=== PATIENT | female | born 1970 | race Caucasian/White ===

== ENCOUNTER 2017-05-07 08:52 | Emergency (ER) | payer OTHER ==
[~2017-05-07 08:52] MED LIST: METAMUCIL425 GM PO; MULT1CAP15 PO; OMEG300C PO
--- NOTE | 2017-05-07 09:34 | PHYS DOC ---
Adult General [facility] HPI Patient is a 47-year-old female with no significant past medical history other than episode of shingles previously presents with complaints of bilateral rib cage pain and left-sided numbness that has been going on for a week. Patient has been ambulatory. Patient doesn't describe any rashes or skin lesions. Patient did have recent long travel. Patient denies any fevers, vomiting, diarrhea or sick contacts. Patient is not a smoker or on control pills. Patient denies any unilateral leg swelling. Patient is not expressing shortness of breath. Review of Systems Review of Systems Constitutional: Denies fever or chills [] Eyes: Denies change in visual acuity, redness, or eye pain [] HENT: Denies nasal congestion or sore throat [] Respiratory: Denies cough or shortness of breath [] Cardiovascular: No additional information not addressed in HPI [] GI: Denies abdominal pain, nausea, vomiting, bloody stools or diarrhea [] : Denies dysuria or hematuria or vaginal discharge Musculoskeletal: Denies back pain or joint pain [] Integument: Denies rash or skin lesions [] Neurologic: Denies headache, focal weakness or sensory changes [] Allergies Allergies Allergies Coded Allergies Type Severity Reaction Last Updated Verified No Known Drug Allergies 07/27/14 No Physical Exam Physical Exam Constitutional: Well developed, well nourished, no acute distress, non-toxic appearance. [] HENT: Normocephalic, atraumatic, bilateral external ears normal, oropharynx moist, no oral exudates, nose normal. [] Eyes: PERRLA, EOMI, conjunctiva normal, no discharge. [] Neck: Normal range of motion, no tenderness, supple, no stridor. No JVD, no LAD Cardiovascular:Heart rate regular rhythm, no murmur, equal pulses, normal perfusion Lungs & Thorax: Bilateral breath sounds clear to auscultation, no tachypnea Abdomen: Bowel sounds normal, soft, no tenderness, no masses, no pulsatile masses. [] Skin: Warm, dry, no erythema, no rash. [] Back: No tenderness, no CVA tenderness. Normal alignment, no step-offs Extremities: No tenderness, no cyanosis, no clubbing, ROM intact, no edema. No signs of DVT Neurologic: Alert and oriented X 3, normal motor function,, no focal deficits noted. Patient ambulates with normal gait without assistance Psychologic: Affect normal, judgement normal, mood normal. [] EKG EKG [id number], SR, no stemi[] Radiology/Procedures Radiology/Procedures TECHNIQUE: PA and lateral chest radiographs FINDINGS: The cardiomediastinal silhouette is within normal limits. The lungs are clear. The costophrenic sulci are clear and well demarcated bilaterally. IMPRESSION: No radiographic evidence of an acute cardiopulmonary abnormality.[] Course & Med Decision Making Course & Med Decision Making Pertinent Labs and Imaging studies reviewed. (See chart for details) and they have been discussed with the patient At this time there is no clear evidence of thought the reason for the patient's symptoms. However I don't believe that the patient is in need for inpatient evaluation given the lack of significant findings on physical exam, the length of the time but she's been having her symptoms, normal vital signs. My suspicion for a significant infectious, vascular, neurovascular or other significant etiology at the time of this ED evaluation is very low. However, as I explained to the patient and the family this may be an early process and the value of recheck and reevaluation is of sharp importance. Both the patient and family agreed to follow up as directed, no reservations about being discharged home. [] Dragon Disclaimer Dragon Disclaimer This chart was dictated in whole or in part using Voice Recognition software in a busy, high-work load, and often noisy Emergency Department environment. It may contain unintended and wholly unrecognized errors or omissions. Departure Departure: Impression: Primary Impression: Chest wall pain Additional Impression: Paresthesia Disposition: 01 HOME, SELF-CARE Condition: STABLE Referrals: DAWNA ROOT (PCP) Please follow-up for recheck and reevaluation in 2 days Patient Instructions: Chest Wall Pain, Paresthesia Scripts Acetaminophen With Codeine (TYLENOL WITH CODEINE #3 TABLET) 1 Each Tablet 1 TAB PO Q6HRS, #10 TAB Prov: Ildefonso GUERRIER MD 05/07/17 Problem Qualifiers Ildefonso GUERRIER MD May 07, 2017 09:34
--- NOTE | 2017-05-07 09:49 | EKG ---
[address] [address] Test Date: 2017-05-07 Test Time: 09:40:22 Pat Name: NAYELY UNDERWOOD Department: Room: Gender: F Material Analyst: : 1970 Requested By: Iledfonso GUERRIER Order Number: [id number] Reading MD: Evertno Llamas Measurements Intervals [place] Rate: 79 P: 36 NE: 150 QRS: -51 QRSD: 86 T: 95 QT: 402 QTc: 462 Interpretive Statements SINUS RHYTHM NON-SPECIFIC ST/T CHANGES Electronically Signed On 05-08-2017 10:24:14 CDT by Everton Llamas
--- NOTE | 2017-05-07 09:52 | RAD ---
EXAM: CHEST 2 VIEWS History: History of chest pain COMPARISON: None available. TECHNIQUE: PA and lateral chest radiographs FINDINGS: The cardiomediastinal silhouette is within normal limits. The lungs are clear. The costophrenic sulci are clear and well demarcated bilaterally. IMPRESSION: No radiographic evidence of an acute cardiopulmonary abnormality.
[2017-05-07 10:31] LABS: BASO # 0.1 x10^3/uL (0.0-0.2); BASO % 1 % (0-3); EOS # 0.9 x10^3/uL (0.0-0.7); EOS % 10 % (0-3); HEMATOCRIT 44.8 % (36.0-47.0); HEMOGLOBIN 15.4 g/dL (12.0-15.5); LYMPH # 2.1 x10^3/uL (1.0-4.8); LYMPH % 23 % (24-48); MEAN CORPUSCULAR HEMOGLOBIN 29 pg (25-35); MEAN CORPUSCULAR HGB CONC 34 g/dL (31-37); MEAN CORPUSCULAR VOLUME 85 fL (79-100); MONO # 0.5 x10^3/uL (0.0-1.1); MONO % 5 % (0-9); NEUT # 5.5 x10^3uL (1.8-7.7); NEUT % 60 % (31-73); PLATELET COUNT 264 x10^3/uL (140-400); RED BLOOD COUNT 5.25 x10^6/uL (3.50-5.40); RED CELL DISTRIBUTION WIDTH 12.5 % (11.5-14.5); WHITE BLOOD COUNT 9.1 x10^3/uL (4.0-11.0)
[2017-05-07 10:32] LABS: CALCIUM 8.9 mg/dL (8.5-10.1); CREATININE 0.8 mg/dL (0.6-1.0); GFR 77.2; POTASSIUM 3.9 mmol/L (3.5-5.1)
[2017-05-07] MEDS ORDERED: KETOROLAC 30 MG/ML VIAL. IV ONE (11:15)
[2017-05-07] MEDS ORDERED: ACET-704 PO (11:36)
[2017-05-07 11:40] VITALS: BP 113/70
== END 2017-05-07 11:40 | disposition home or self-care (01) ==
LOC: ER 08:52
DX: R07.89 Other chest pain (principal); R20.2 Paresthesia of skin
CPT/HCPCS: 36415; 71020; 80048; 84484; 85025; 85379; 93005; 96374; 99285; J1885

== ENCOUNTER → 2017-05-09 | Outpatient (CLI) | payer OTHER ==
[2017-05-07 11:40] VITALS: BP 113/70
[~2017-05-09] MED LIST changes: +ACET-704 PO
--- NOTE | 2017-05-09 14:27 | RAD ---
Lumbar spine, 5 views, 05/09/2017: History: Left leg numbness and thoracic pain The lumbar vertebral heights are well-maintained. The intervertebral disc spaces are well preserved. There are only minimal scattered marginal spurs in the lumbar spine. There is also mild spurring in the lower thoracic spine. There is no evidence of spondylolysis. The paraspinous soft tissues are unremarkable. IMPRESSION: 1. Mild marginal spurring. 2. No acute lumbar spine abnormality is detected.
--- NOTE | 2017-05-09 14:29 | RAD ---
Thoracic spine, 3 views, 05/09/2017: History: Left leg numbness, thoracic pain The thoracic vertebral heights are well-maintained. There are mild scattered marginal spurs. There is a mild thoracic scoliosis. No fracture or destructive bony lesion is seen. The paraspinous soft tissues are unremarkable. IMPRESSION: 1. Mild thoracic scoliosis. 2. Mild marginal spurring. 3. No acute bony abnormality is detected.
== END | disposition home or self-care (01) ==
LOC: DXRADRC 12:53
PROVIDERS: ATTEND Physician Assistant Medical
DX: M53.84 Other specified dorsopathies, thoracic region (principal); M41.84 Other forms of scoliosis, thoracic region
CPT/HCPCS: 72072; 72110

== ENCOUNTER → 2017-05-18 | Outpatient (CLI) | payer OTHER ==
[2017-05-07 11:40] VITALS: BP 113/70
[~2017-05-18] MED LIST changes: +CONTRAST GIVEN MC PRN; +IOHEXOL 240 MG/ML 50ML VIAL. PO ONE; +IOHEXOL 300 MG/ML 75 ML VIAL. IV ONE
--- NOTE | 2017-05-18 14:53 | RAD ---
Examination: CT of the abdomen pelvis without and with IV contrast History: History of abdominal pain for 3 weeks Comparison: 07/27/2014 Technique: Axial CT images of the abdomen pelvis performed without and with IV contrast. Coronal and sagittal reformats are performed. PQRS Compliance Statement: One or more of the following individualized dose reduction techniques were utilized for this examination: 1. Automated exposure control 2. Adjustment of the mA and/or kV according to patient size 3. Use of iterative reconstruction technique Findings: Minimal bibasal lung atelectasis. No evidence of free air identified in the abdomen the visualized liver demonstrates tiny subcentimeter cystic structure identified in the right lobe of the liver is too small to characterize. Otherwise the visualized liver grossly appears unremarkable. The visualized spleen, adrenals grossly appears unremarkable. Cholecystectomy clips are identified. . The stomach is minimally distended. The small bowel is nondilated. The visualized pancreas grossly appears unremarkable. The appendix is normal. Feces and gas noted throughout the colon. Few scattered sigmoid colon diverticulosis. Urinary bladder is mildly distended. The visualized uterus, adnexa grossly appears unremarkable. The bilateral kidneys enhance symmetrically. No evidence of intercurrent system calculi or hydronephrosis. Mild prominent bilateral extrarenal pelvis. The caliber of the aorta grossly appears unremarkable. Prior surgical changes identified in the right adnexa. In the left adnexal region there is a lobulated heterogeneous structure measuring 6 cm in CC dimension with cystic changes within probably large cystic-appearing left ovary. This is similar to prior exam of 2013. No evidence of lytic bony destructive lesion. Trace pericardial effusion. Impression 1. No acute abdominal findings. 2. In the left adnexal region there is a lobulated heterogeneous structure measuring 6 cm in CC dimension with cystic changes within probably large cystic-appearing left ovary. This is similar to prior exam of 2013. Ultrasound pelvis may be useful. 3. Few scattered sigmoid colon diverticulosis. 4. Cholecystectomy changes. 5. Trace pericardial effusion.
== END | disposition home or self-care (01) ==
LOC: CT 12:41
PROVIDERS: ATTEND Physician Assistant Medical
DX: K57.30 Diverticulosis of large intestine without perforation or abscess without bleeding (principal); J98.11 Atelectasis; I31.3 Pericardial effusion (noninflammatory); K31.89 Other diseases of stomach and duodenum; Z90.49 Acquired absence of other specified parts of digestive tract
CPT/HCPCS: 74178; Q9966; Q9967

== ENCOUNTER → 2019-01-21 | Outpatient (CLI) | payer OTHER ==
[~2019-01-21] MED LIST changes: -CONTRAST GIVEN MC PRN; -IOHEXOL 240 MG/ML 50ML VIAL. PO ONE; -IOHEXOL 300 MG/ML 75 ML VIAL. IV ONE
[2019-01-21 08:22] LABS: BASO # 0.1 x10^3/uL (0.0-0.2); BASO % 1 % (0-3); EOS # 0.8 x10^3/uL (0.0-0.7); EOS % 10 % (0-3); HEMOGLOBIN 15.4 g/dL (12.0-15.5); LYMPH # 1.7 x10^3/uL (1.0-4.8); LYMPH % 21 % (24-48); MEAN CORPUSCULAR HEMOGLOBIN 29 pg (25-35); MEAN CORPUSCULAR HGB CONC 34 g/dL (31-37); MEAN CORPUSCULAR VOLUME 84 fL (79-100); MONO # 0.4 x10^3/uL (0.0-1.1); MONO % 5 % (0-9); NEUT % 63 % (31-73); PLATELET COUNT 288 x10^3/uL (140-400); RED BLOOD COUNT 5.36 x10^6/uL (3.50-5.40); RED CELL DISTRIBUTION WIDTH 13.4 % (11.5-14.5)
[2019-01-21 08:29] LABS: BACTERIA,URINE FEW /HPF (0-FEW); BILIRUBIN,URINE NEG (NEG); CLARITY,URINE CLEAR; COLOR,URINE YELLOW; GLUCOSE,URINE NEG (NEG); NITRITE,URINE NEG (NEG); RBC,URINE 0 /HPF (0-2); UROBILINOGEN,URINE 0.2 mg/dL (0.2 mg/dL); WBC,URINE RARE /HPF (0-4)
[2019-01-21 08:30] LABS: SQUAMOUS EPITHELIAL CELL,UR FEW /LPF
[2019-01-21 08:30] LABS: ALBUMIN 3.8 g/dL (3.4-5.0); CALCIUM 9.4 mg/dL (8.5-10.1); CREATININE 0.8 mg/dL (0.6-1.0); GFR 76.9; POTASSIUM 4.1 mmol/L (3.5-5.1); TOTAL BILIRUBIN 0.4 mg/dL (0.2-1.0); TOTAL PROTEIN 7.8 g/dL (6.4-8.2)
[2019-01-21 13:16] LABS: THYROID STIM HORMONE (TSH) 2.106 uIU/mL (0.358-3.740)
== END | disposition home or self-care (01) ==
LOC: LAB 07:24
PROVIDERS: ATTEND Physician Assistant Medical
DX: R63.5 Abnormal weight gain (principal)
CPT/HCPCS: 36415; 80053; 80061; 81001; 84439; 84443; 84481; 85025

== ENCOUNTER → 2020-02-09 | Outpatient (CLI) | payer OTHER ==
--- NOTE | 2020-02-09 08:18 | RAD ---
CT ABDOMEN PELVIS WO CONTRAST INDICATION: Reason: RUQ PAIN RADIATES TO BACK HX: CHOLECYSTECTOMY, OOPHORECTOMY / Spl. Instructions: / History: EXAM: Noncontrast CT of the abdomen and pelvis. Coronal and sagittal reformatted images were performed. PQRS compliance statement: One or more of the following individualized dose reduction techniques were utilized for this examination: 1. Automated exposure control 2. Adjustment of the mA and/or kV according to patient size 3. Use of iterative reconstruction technique COMPARISON: 05/18/2017 FINDINGS: No free air, free fluid, or fluid collection. Lower chest: The visualized lower lungs are aerated. No pleural or pericardial effusion. ABDOMEN: Liver: The noncontrast liver is homogeneous in attenuation. Gallbladder and biliary: Cholecystectomy. Normal caliber bile ducts. Spleen: Normal spleen. Pancreas: The noncontrast pancreas is homogeneous in attenuation without peripancreatic inflammatory changes. Adrenal glands: Normal adrenal glands. Kidneys and ureters: No opaque urinary calculi. No hydronephrosis. GI tract: The stomach is decompressed and poorly evaluated. Normal caliber small bowel and colon. Mild colonic diverticulosis. Normal appendix. Vascular structures: Normal caliber abdominal aorta. Lymph nodes: No lymphadenopathy in the abdomen or pelvis. PELVIS: Genitourinary system: Urinary bladder is decompressed. Uterus is present. SKELETAL STRUCTURES AND SOFT TISSUES: No fracture or destructive lesion in the visualized skeleton. IMPRESSION: 1. No hydronephrosis or opaque urinary calculi. 2. Mild colonic diverticulosis. 3. Cholecystectomy. Electronically signed by: Korey Diane MD (02/09/2020 8:15 AM) [id number]
== END ==
LOC: CT 07:34
PROVIDERS: ATTEND Physician Assistant Medical
DX: K57.30 Diverticulosis of large intestine without perforation or abscess without bleeding (principal); Z90.49 Acquired absence of other specified parts of digestive tract
CPT/HCPCS: 74176

== ENCOUNTER 2020-12-29 01:43 | Emergency (ER) | payer OTHER ==
[~2020-12-29] VITALS: Ht 162.6 cm; Wt 139.0 kg
--- NOTE | 2020-12-29 02:24 | PHYS DOC ---
Past History Past Medical History: Diverticulitis Past Surgical History: Cholecystectomy, , Other Alcohol Use: Occasionally Drug Use: None General Adult EDM: Chief Complaint: ABDOMINAL PAIN HPI: HPI: 50-year-old female presents with right lower quadrant abdominal pain. The pain started around 1130 last night. It was sudden onset. She states it is a cramping sensation comes in waves. It ranges between a 5 and 8 on a pain scale of 10. It is currently a 5 out of 10. It radiates around her right flank. The patient is concerned mostly because she has had ovarian cysts in the past before. She had one ovary removed as a result. She does not remember which ovary was removed. The patient did start her menstrual cycle today, but these cramps feel different. She denies fever or chills. She denies dysuria or increased urinary frequency. No change in bowel habits. Review of Systems: Review of Systems: Constitutional: Denies fever or chills Eyes: Denies change in visual acuity HENT: Denies nasal congestion or sore throat Respiratory: Denies cough or shortness of breath Cardiovascular: Denies chest pain or edema GI: Right lower quadrant abdominal pain. Denies nausea, vomiting, bloody stools or diarrhea : Denies dysuria Musculoskeletal: Denies back pain or joint pain Integument: Denies rash Neurologic: Denies headache, focal weakness or sensory changes Endocrine: Denies polyuria or polydipsia Lymphatic: Denies swollen glands Psychiatric: Denies depression or anxiety Current Medications: Current Meds: Current Medications Medications (Trade) Dose Ordered Sig/Saima Start Time Stop Time Status Last Admin Dose Admin Sodium Chloride 1,000 ml @ 1,000 mls/hr 1X ONCE 12/29/20 02:30 12/29/20 03:29 Allergies: Allergies: Allergies Coded Allergies Type Severity Reaction Last Updated Verified No Known Drug Allergies 07/27/14 No Physical Exam: PE: Constitutional: Well developed, well nourished, morbidly obese, no acute distress, non-toxic appearance. [] HENT: Normocephalic, atraumatic, bilateral external ears normal, oropharynx moist, no oral exudates, nose normal. [] Eyes: PERRLA, EOMI, conjunctiva normal, no discharge. [] Neck: Normal range of motion, no tenderness, supple, no stridor. [] Cardiovascular:Heart rate regular rhythm, no murmur [] Lungs & Thorax: Bilateral breath sounds clear to auscultation [] Abdomen: Bowel sounds normal, soft, no tenderness to palpation. [] Skin: Warm, dry, no erythema, no rash. [] Back: No tenderness, no CVA tenderness. [] Extremities: No tenderness, no cyanosis, no clubbing, ROM intact, no edema. [] Neurologic: Alert and oriented X 3, normal motor function, normal sensory function, no focal deficits noted. [] Psychologic: Affect normal, judgement normal, mood normal. [] EKG: EKG: [] Radiology/Procedures: Radiology/Procedures: [] Impressions: Unopacified GI tract normal in caliber and contour. No focal bowel wall thickening. No inflammatory stranding in the mesentery. There are scattered diverticula throughout the colon. No paracolonic inflammatory changes. The appe ndix is normal in caliber. No ascites or lymphadenopathy. Abdominal aorta normal in caliber. Images of pelvis show distended urinary bladder with fluid filling the endometrial canal and cervix. There is a 5.6 cm left ovarian cyst. No free fluid or pelvic lymphadenopathy. Bone windows show no acute findings. Multilevel spondylosis. IMPRESSION: 1. No acute abnormality of abdomen or pelvis. Normal appendix. 2. Heterogeneous material filling the endometrial canal and cervix of uncertain etiology. This could be related to menstrual cycle. Underlying mass cannot be excluded. If indicated, ultrasound could better evaluate. 3. There is a 5.6 cm left ovarian cyst. This could also be better evaluated on pelvic ultrasound. 4. Fatty infiltration of liver. Electronically signed by: Jose F Urias MD (12/29/2020 3:07 AM) [facility] [place] AND SIGNED BY: JOSE F URIAS MD DATE: 12/29/20 0303 CC: JIM ALMONTE DO; DAWNA ROOT ~MTH0 0 Pelvic ultrasound dated 12/21/2020. No comparison available. CLINICAL INDICATION: History of ovarian cyst. Increasing pain. Evaluate for torsion. FINDINGS: Uterus measures 11.2 x 5.8 x 4.9 cm. No focal uterine mass. Endometrial complex measures 2 cm. Left ovary measures 5.2 x 6.4 x 4.9 cm. There is a 5.3 cm left ovarian cyst. There is normal color flow to the left ovary. Right ovary is surgically absent. Small amount of fluid in the endometrial canal. IMPRESSION: 1. There is a 5.3 cm left ovarian cyst. Follow-up imaging may be warranted to ensure stability. 2. Right ovary not clearly identified and may be surgically absent. No apparent right adnexal mass or free fluid. Electronically signed by: Jose F Urias MD (12/29/2020 4:23 AM) [facility] [place] AND SIGNED BY: JOSE F URIAS MD DATE: 12/29/20419 CC: JIM ALMONTE DO; DAWNA ROOT ~MTH0 0 Heart Score: C/O Chest Pain: N/A Risk Factors: Risk Factors: DM, Current or recent (<one month) smoker, HTN, HLP, family history of CAD, obesity. Risk Scores: Score 0 - 3: 2.5% MACE over next 6 weeks - Discharge Home Score 4 - 6: 20.3% MACE over next 6 weeks - Admit for Clinical Observation Score 7 - 10: 72.7% MACE over next 6 weeks - Early Invasive Strategies Course & Med Decision Making: Course & Med Decision Making Pertinent Labs and Imaging studies reviewed. (See chart for details) The patient's labs are unremarkable. Her urinalysis is negative for infection. CT scan shows likely 5.6 cm left ovarian cyst. She is continued to have pain. I have ordered an ultrasound to rule out torsion. I have given her 4 mg of Zofran and 4 mg of morphine for her discomfort. The patient's ultrasound conf irms ovarian cyst, but no torsion or other significant findings here seen. See official read for more details. The patient is stable for discharge at this time. [] Dragon Disclaimer: Dragon Disclaimer: This electronic medical record was generated, in whole or in part, using a voice recognition dictation system. Departure Departure: Impression: Primary Impression: Abdominal pain Qualified Codes: R10.31 - Right lower quadrant pain Disposition: 01 HOME / SELF CARE / HOMELESS Condition: STABLE Referrals: DAWNA ROOT (PCP) Patient Instructions: Abdominal Pain, Women JIM ALMONTE DO Dec 29, 2020 02:24
[2020-12-29] MEDS ORDERED: IV NORMAL SALINE 1,000ML 1,000 ML IV ONE (02:30)
[2020-12-29] MEDS ORDERED: CONTRAST GIVEN. MC PRN (02:45)
[2020-12-29] MEDS ORDERED: IOHEXOL 300 MG/ML 75 ML VIAL. IV ONE (03:00)
[2020-12-29 03:01] LABS: BASO # 0.1 x10^3/uL (0.0-0.2); BASO % 1 % (0-3); EOS # 0.7 x10^3/uL (0.0-0.7); EOS % 9 % (0-3); HEMATOCRIT 39.2 % (36.0-47.0); HEMOGLOBIN 13.3 g/dL (12.0-15.5); LYMPH # 1.6 x10^3/uL (1.0-4.8); LYMPH % 21 % (24-48); MEAN CORPUSCULAR HEMOGLOBIN 29 pg (25-35); MEAN CORPUSCULAR HGB CONC 34 g/dL (31-37); MEAN CORPUSCULAR VOLUME 85 fL (79-100); MONO # 0.5 x10^3/uL (0.0-1.1); MONO % 7 % (0-9); NEUT # 4.7 x10^3uL (1.8-7.7); NEUT % 62 % (31-73); PLATELET COUNT 193 x10^3/uL (140-400); RED CELL DISTRIBUTION WIDTH 13.5 % (11.5-14.5); WHITE BLOOD COUNT 7.7 x10^3/uL (4.0-11.0)
--- NOTE | 2020-12-29 03:10 | RAD ---
CT abdomen pelvis with contrast dated 12/29/2020. Comparison made to February 09, 2020.. CLINICAL INDICATION: Right lower quadrant pain. TECHNIQUE: Contiguous axial imaging the abdomen pelvis performed after the administration of 75 cc Omnipaque 300 . One or more of the following individualized dose reduction techniques were utilized for this examinat ion: 1. Automated exposure control 2. Adjustment of the mA and/or kV according to patient size 3. Use of iterative reconstruction technique. FINDINGS: Limited images of lung bases are clear. Heart size within normal limits. No pleural or pericardial ef fusion. There is a 5 mm noncalcified pulmonary nodule in the left lower lobe on image 13 that is unch anged from prior exam. Diffuse low-density of the liver, compatible fatty infiltration. No apparent mass. Biliary tree barrington l in caliber. No bladder surgically absent. Spleen is normal in size. Pancreas, adrenal glands and kidneys are unremarkable. No hydronephrosis. Unopacified GI tract normal in caliber and contour. No focal bowel wall thickening. No inflammatory s tranding in the mesentery. There are scattered diverticula throughout the colon. No paracolonic infla mmatory changes. The appendix is normal in caliber. No ascites or lymphadenopathy. Abdominal aorta no rmal in caliber. Images of pelvis show distended urinary bladder with fluid filling the endometrial canal and cervix. There is a 5.6 cm left ovarian cyst. No free fluid or pelvic lymphadenopathy. Bone windows show no acute findings. Multilevel spondylosis. IMPRESSION: 1. No acute abnormality of abdomen or pelvis. Normal appendix. 2. Heterogeneous material filling the endometrial canal and cervix of uncertain etiology. This could be related to menstrual cycle. Underlying mass cannot be excluded. If indicated, ultrasound could bet ter evaluate. 3. There is a 5.6 cm left ovarian cyst. This could also be better evaluated on pelvic ultrasound. 4. Fatty infiltration of liver. Electronically signed by: Jose F Urias MD (12/29/2020 3:07 AM) [facility] [place]
[2020-12-29 03:28] LABS: CALCIUM 8.9 mg/dL (8.5-10.1); GFR 58.9
[2020-12-29 03:33] LABS: ALBUMIN 3.5 g/dL (3.4-5.0); TOTAL BILIRUBIN 0.3 mg/dL (0.2-1.0); TOTAL PROTEIN 7.1 g/dL (6.4-8.2)
[2020-12-29] MEDS ORDERED: ONDANSETRON PF 4 MG/2 ML VIAL. IVP ONE (03:45)
[2020-12-29] MEDS ORDERED: MORPHINE SULFATE 4 MG/ML DISP.SYRIN. IV ONE (03:45)
--- NOTE | 2020-12-29 04:25 | RAD ---
Pelvic ultrasound dated 12/21/2020. No comparison available. CLINICAL INDICATION: History of ovarian cyst. Increasing pain. Evaluate for torsion. FINDINGS: Uterus measures 11.2 x 5.8 x 4.9 cm. No focal uterine mass. Endometrial complex measures 2 cm. Left ovary measures 5.2 x 6.4 x 4.9 cm. There is a 5.3 cm left ovarian cyst. There is normal color fl ow to the left ovary. Right ovary is surgically absent. Small amount of fluid in the endometrial viktoriya l. IMPRESSION: 1. There is a 5.3 cm left ovarian cyst. Follow-up imaging may be warranted to ensure stability. 2. Right ovary not clearly identified and may be surgically absent. No apparent right adnexal mass or free fluid. Electronically signed by: Jose F Urias MD (12/29/2020 4:23 AM) [facility]
[2020-12-29 04:55] VITALS: BP 138/86
== END 2020-12-29 04:55 | disposition home or self-care (01) ==
LOC: ER 01:43
DX: R10.31 Right lower quadrant pain (principal); Z90.49 Acquired absence of other specified parts of digestive tract; Z98.890 Other specified postprocedural states
CPT/HCPCS: 36415; 74177; 76856; 80053; 81025; 85025; 96361; 96374; 96375; 99285; J2270; J2405; J7030; Q9967

== ENCOUNTER → 2021-01-12 | Outpatient (CLI) | payer OTHER ==
[2020-12-29 04:55] VITALS: BP 138/86
--- NOTE | 2021-01-13 12:13 | RAD ---
DATE: January 12, 2021 EXAM: DIGITAL SCREEN BILAT W/CAD HISTORY: Screening study. COMPARISON: 2014 This study was interpreted with the benefit of Computerized Aided Detection (CAD). FINDINGS: Breast Density: FATTY The breast parenchyma is primarily fatty replaced. Breast parenchyma level density A.. There are no dominant suspicious masses, suspicious microcalcifications or evidence of architectural distortion. IMPRESSION: No mammographic indicators for malignancy. BI-RADS CATEGORY: 1 NEGATIVE RECOMMENDED FOLLOW-UP: 12M 12 MONTH FOLLOW-UP PQRS compliance statement: Patient information was entered into a reminder system with a target due date January 13, 2022 for the next mammogram. Mammography is a sensitive method for finding small breast cancers, but it does not detect them all and is not a substitute for careful clinical examination. A negative mammogram does not negate a clinically suspicious finding and should not result in delay in biopsying a clinically suspicious abnormality. "Our facility is accredited by the [employer] Mammography Program." The patient's breast density may affect the ability of mammography to detect breast cancer. There are 4 categories of breast density, A, B, C and D. Breast density A means that most of the breast tissue is replaced with adipose tissue and therefore is not dense. Breast density B means that the breast tissue is mildly dense and scattered. Breast density C means that the breast tissue is heterogeneously dense. Breast density D means that the breast tissue is very dense. Breast densities especially C and D may decrease the sensitivity of mammography to detect breast cancer. Therefore, the patient may benefit from 3-D breast mammography (3D breast tomography) as a part of their screening mammogram. Insurance may or may not pay for this additional imaging. The patient's breast density based on today's mammogram is category A.
== END ==
LOC: MAMMO 15:23
PROVIDERS: ATTEND Obstetrics & Gynecology
DX: Z12.31 Encounter for screening mammogram for malignant neoplasm of breast (principal)
CPT/HCPCS: 77067

== ENCOUNTER → 2021-02-11 | Outpatient (CLI) | payer OTHER ==
--- NOTE | 2021-02-11 11:29 | RAD ---
EXAM: ULTRASOUND PELVIS INDICATION: Follow-up adnexal cysts. COMPARISON: 12/21/2020 TECHNIQUE: Transabdominal pelvic sonography was performed. FINDINGS: The uterus measures 11.1 x 4.5 x 4.4 cm. Endometrial thickness of 0.2 cm. Absent right ovary. The lef t ovary measures 3.4 x 1.9 x 2.3 cm. Unremarkable uterine parenchyma. No vascularity along the endometrium. Previously seen 5.3 cm left ovarian cyst has resolved. There is now only a small cyst or follicle echo suring up to 1.4 cm. Doppler flow is maintained to the left ovary. No free fluid. IMPRESSION: 1. Resolved 5.3 cm left ovarian cyst now with only a 1.4 cm cyst or follicle on the left. 2. Absent right ovary. Unremarkable uterus and endometrium. Electronically signed by: ANITA MELENDREZ MD (02/11/2021 11:27 AM) [facility]
== END ==
LOC: US 10:04
PROVIDERS: ATTEND Obstetrics & Gynecology
DX: N83.292 Other ovarian cyst, left side (principal)
CPT/HCPCS: 76856

== ENCOUNTER 2021-05-28 08:32 | Emergency (ER) | payer OTHER ==
[~2021-05-28] VITALS: Ht 162.6 cm; Wt 137.1 kg
--- NOTE | 2021-05-28 09:18 | PHYS DOC ---
Past History Past Medical History: Diverticulitis, Ovarian Cyst, Other Additional Past Medical Histor: cavernoma of spinal cord Past Surgical History: Cholecystectomy, , Other Additional Past Surgical Histo: ovary removal Alcohol Use: Occasionally Additional Alcohol Information: weekly wine drinker Drug Use: None General Adult EDM: Chief Complaint: LOWER EXTREMITY SWELLING HPI: HPI: 51-year-old female presents with intermittent chest pain and lower extremity swelling. She has been having periods of sharp chest pain that lasts only a few seconds off and on for the last couple of weeks. She has also noticed some foot and ankle swelling the last couple of days. All of this together made her concerned so she came in for evaluation. Stress seems to make the chest pain worse. It only lasts a short amount of time and then goes away. She denies shortness of breath with these episodes, but has felt like she has had wheezing intermittently the last couple weeks. The patient has no personal history of cardiac problems but does have family history. She has never had a stress test or cardiac cath. She denies fever or chills. Review of Systems: Review of Systems: Constitutional: Denies fever or chills Eyes: Denies change in visual acuity HENT: Denies nasal congestion or sore throat Respiratory: Wheezing. Denies cough or shortness of breath Cardiovascular: Chest pain GI: Denies abdominal pain, nausea, vomiting, bloody stools or diarrhea : Denies dysuria Musculoskeletal: Denies back pain or joint pain Integument: Denies rash Neurologic: Denies headache, focal weakness or sensory changes Endocrine: Denies polyuria or polydipsia Lymphatic: Denies swollen glands Psychiatric: Denies depression or anxiety Allergies: Allergies: Allergies Coded Allergies Type Severity Reaction Last Updated Verified No Known Drug Allergies 05/28/21 No Physical Exam: PE: Constitutional: Well developed, well nourished, morbidly obese, no acute distress, non-toxic appearance. [] HENT: Normocephalic, atraumatic, bilateral external ears normal, oropharynx moist, no oral exudates, nose normal. [] Eyes: PERRLA, EOMI, conjunctiva normal, no discharge. [] Neck: Normal range of motion, no tenderness, supple, no stridor. [] Cardiovascular: Heart rate 76, regular rhythm, no murmur [] Lungs & Thorax: Bilateral breath sounds clear to auscultation [] Abdomen: Bowel sounds normal, soft, no tenderness, no masses, no pulsatile masses. [] Skin: Warm, dry, no erythema, no rash. [] Back: No tenderness, no CVA tenderness. [] Extremities: No tenderness, no cyanosis, no clubbing, ROM intact, no edema. [] Neurologic: Alert and oriented X 3, normal motor function, normal sensory function, no focal deficits noted. [] Psychologic: Affect normal, judgement normal, mood concerned. [] Current Patient Data: Vital Signs: Vital Signs Date Time Temp Pulse Resp B/P (MAP) Pulse Ox O2 Delivery O2 Flow Rate FiO2 05/28/21 08:40 97.9 84 22 146/102 (117) 97 Room Air EKG: EKG: Sinus rhythm, rate 76, leftward axis, no ST elevation or depression, inverted T waves V5 V6. [] Radiology/Procedures: Radiology/Procedures: [] Heart Score: C/O Chest Pain: Yes HEART Score for Chest Pain: HEART Score for Chest Pain Response (Comments) Value History Slighlty/Non-Suspicious 0 ECG Nonspecific Repolarizatio 1 Age >45 - < 65 1 Risk Factors 1 or 2 Risk Factors 1 Troponin < Normal Limit 0 Total 3 Risk Factors: Risk Factors: DM, Current or recent (<one month) smoker, HTN, HLP, family history of CAD, obesity. Risk Scores: Score 0 - 3: 2.5% MACE over next 6 weeks - Discharge Home Score 4 - 6: 20.3% MACE over next 6 weeks - Admit for Clinical Observation Score 7 - 10: 72.7% MACE over next 6 weeks - Early Invasive Strategies Course & Med Decision Making: Course & Med Decision Making Pertinent Labs and Imaging studies reviewed. (See chart for details) The patient's EKG had some nonspecific findings. No ST elevation. Labs are unremarkable. Troponin is negative. Chest x-ray is negative for acute findings. proBNP is slightly elevated at 400. The patient has had a lot of stress at work lately and I suspect this is contributing to her chest pains. I have advised that she follow-up with her primary care physician and go ahead and consider a stress test given family history and her age. She does have a couple risk factors. Patient states verbal understanding. She is stable for discharge at this time. [] Dragon Disclaimer: Dragon Disclaimer: This electronic medical record was generated, in whole or in part, using a voice recognition dictation system. Departure Departure: Impression: Primary Impression: Chest pain Qualified Codes: R07.9 - Chest pain, unspecified Additional Impression: Stress reaction Disposition: HOME / SELF CARE / HOMELESS Condition: STABLE Referrals: DAWNA ROOT (PCP) Patient Instructions: Chest Pain (Nonspecific), [id number] JIM ALMONTE DO May 28, 2021 09:18
[2021-05-28 09:28] LABS: BASO # 0.1 x10^3/uL (0.0-0.2); BASO % 1 % (0-3); EOS # 0.7 x10^3/uL (0.0-0.7); EOS % 10 % (0-3); HEMATOCRIT 40.5 % (36.0-47.0); HEMOGLOBIN 13.7 g/dL (12.0-15.5); LYMPH # 1.5 x10^3/uL (1.0-4.8); LYMPH % 22 % (24-48); MEAN CORPUSCULAR HEMOGLOBIN 29 pg (25-35); MEAN CORPUSCULAR HGB CONC 34 g/dL (31-37); MEAN CORPUSCULAR VOLUME 85 fL (79-100); MONO # 0.4 x10^3/uL (0.0-1.1); MONO % 6 % (0-9); NEUT # 4.2 x10^3uL (1.8-7.7); NEUT % 61 % (31-73); PLATELET COUNT 218 x10^3/uL (140-400); RED BLOOD COUNT 4.79 x10^6/uL (3.50-5.40); RED CELL DISTRIBUTION WIDTH 13.4 % (11.5-14.5); WHITE BLOOD COUNT 6.9 x10^3/uL (4.0-11.0)
--- NOTE | 2021-05-28 09:31 | RAD ---
Exam Date: 05/28/2021 8:51 AM XR CHEST 1V Indication: Reason: CP / Spl. Instructions: / History: . Comparison: May 07, 2017 FINDINGS/ IMPRESSION: The cardiac silhouette and pulmonary vasculature are within normal limits. There is no focal consolidation, pleural effusion or pneumothorax. The visualized osseous structures are intact. Electronically signed by: Cirilo Davenport MD (05/28/2021 9:29 AM) [facility]
[2021-05-28 09:42] LABS: CALCIUM 9.2 mg/dL (8.5-10.1); CREATININE 0.7 mg/dL (0.6-1.0); GFR 88.6; POTASSIUM 3.8 mmol/L (3.5-5.1)
[2021-05-28 09:46] LABS: BACTERIA,URINE 0 /HPF (0-FEW); BILIRUBIN,URINE NEG (NEG); CLARITY,URINE CLEAR; COLOR,URINE STRAW; GLUCOSE,URINE NEG (NEG); NITRITE,URINE NEG (NEG); SQUAMOUS EPITHELIAL CELL,UR MOD /LPF; UROBILINOGEN,URINE 0.2 mg/dL (0.2 mg/dL); WBC,URINE OCC /HPF (0-4)
[2021-05-28 09:55] LABS: ALBUMIN 3.7 g/dL (3.4-5.0); ALBUMIN/GLOBULIN RATIO 0.9 (1.0-1.7); TOTAL BILIRUBIN 0.4 mg/dL (0.2-1.0); TOTAL PROTEIN 7.7 g/dL (6.4-8.2)
--- NOTE | 2021-05-28 10:13 | EKG ---
[address] [address] Test Date: 2021-05-28 Test Time: 08:43:15 Pat Name: NAYELY UNDERWOOD Department: Room: Gender: F Ward Maid: PRIMITIVO : 1970 Requested By: JIM ALMONTE Order Number: [id number] Reading MD: Measurements Intervals [place] Rate: 76 P: 34 W[place]: 154 QRS: -31 QRSD: 96 T: 114 QT: 422 QTc: 480 Interpretive Statements SINUS RHYTHM ABNORMAL LEFT AXIS DEVIATION R-S TRANSITION ZONE IN V LEADS DISPLACED TO THE LEFT LEFT ANTERIOR FASCICULAR BLOCK LVH WITH REPOLARIZATION ABNORMALITY PROLONGED QT ABNORMAL ECG RI6.02 No previous ECG available for comparison
[2021-05-28] MEDS ORDERED: ALBUTEROL SULFATE 8GM INHALER. INH ONE (10:30)
[2021-05-28 11:00] VITALS: BP 152/93
== END 2021-05-28 11:08 | disposition home or self-care (01) ==
LOC: ER 08:32
DX: R07.89 Other chest pain (principal); R60.0 Localized edema; R06.2 Wheezing; F43.9 Reaction to severe stress, unspecified
CPT/HCPCS: 36415; 71045; 80053; 81001; 83880; 84484; 85025; 93005; 94640; 99285; 94664

== ENCOUNTER → 2021-11-23 | Outpatient (CLI) | payer OTHER ==
--- NOTE | 2021-11-23 09:53 | RAD ---
AP and Lateral Views of the Chest 11/23/2021 8:29 AM Indication: Chest pain Comparison: Chest radiograph May 28, 2021 Findings: There is no focal consolidation or infiltrate identified. The cardiomediastinal silhouette is within normal limits. There is no evidence of pneumothorax or pleural effusion. No acute osseous a bnormalities are identified. Impression: No evidence of acute cardiopulmonary process. Electronically signed by: Ralph Oseguera MD (11/23/2021 9:51 AM) [id number]
== END ==
LOC: RAD 08:12
PROVIDERS: ATTEND Physician Assistant Medical
DX: R07.89 Other chest pain (principal)
CPT/HCPCS: 71046